=== PATIENT | female | born 1965 | race African-American/Black ===

== ENCOUNTER 2019-08-30 09:51 | Emergency (ER) | payer OTHER ==
[2019-08-30 10:02] VITALS: BP 131/73
--- NOTE | 2019-08-30 11:11 | Emergency Department Report ---
Minor Respiratory - HPI Chief Complaint: Upper Respiratory Infection Stated Complaint: FLU SYM Time Seen by Provider: 08/30/19 10:17 Pain Location: Facial, Nose, Chest Severity: mild Minor Respiratory: Yes Able to Tolerate Fluids, No Rhinorrhea, No Sore Throat, No Ear Pain, No Cough, No Sick Contacts, No Hemoptysis, No Chest Pain, No Shortness of Breath, No Fever Other History: Patient is a 53-year-old [place] female who comes to the ER. Complaining of fatigue, runny nose. She denied fever to me. She denied cough and shortness of breath to me. She denies having a temperature or night sweats. Family members present for interpretation. On assessment patient is afebrile, non-tachycardic, not hypotensive saturation on room air is 98%. She appears to be in no acute distress. She denies any medical problems or any daily medications. She states that last week she went to an urgent care and they did not care what happened to her they told her to come to the ER. She did not feel better today so her family brings her to the ER. She has had no travel, or high risk exposure for covid19. Patient is ambulatory, taking p.o., sitting in the chair with no difficulty in breathing, no increased work of breathing. No underlying comorbid conditions. My suspicion for covert 19 is low. However, chest x-ray has been ordered to rule out consolidation. ED Review of Systems ROS: Stated complaint: FLU SYM Other details as noted in HPI Comment: All other systems reviewed and negative ED Past Medical Hx - Past Medical History Previous Medical History?: No - Surgical History Past Surgical History?: No - Family History Family history: no significant - Social History Smoking Status: Never Smoker Substance Use Type: None - Medications Home Medications: Home Medications Medication Instructions Recorded Confirmed Last Taken Type Fluticasone [Flonase] 1 spray NS QDAY #1 bottle 08/30/19 Unknown Rx levoFLOXacin [Levaquin TAB] 500 mg PO QDAY #10 tablet 08/30/19 Unknown Rx predniSONE [Deltasone] 20 mg PO DAILY #5 tablet 08/30/19 Unknown Rx Minor Respiratory Exam - Exam General: Vital signs noted. No distress. Alert and acting appropriately. HEENT: Yes Moist Mucous Membranes, No Pharyngeal Erythema, No Pharyngeal Exudates, No Rhinorrhea, No Conjuctival Injection, No Frontal Tenderness, No Maxillary Tenderness Ear: Neither TM Bulge, Neither TM Erythema, Neither EAC Pain, Neither EAC Discharge Neck: Yes Supple, No Adenopathy Lungs: Yes Good Air Exchange, No Wheezes, No Ronchi, No Stridor, No Cough, No Labored Respirations, No Retractions, No Use of Accessory Muscles, No Other Abnormal Lung Sounds Heart: Yes Regular, No Murmur Abdomen: Yes Normal Bowel Sounds, No Tenderness, No Peritoneal Signs Skin: No Rash, No Edema Neurologic: Alert and oriented, no deficits. Musculoskeletal: Unremarkable. ED Course Vital Signs 08/30/19 09:57 Temperature 97.4 F L Pulse Rate 87 Respiratory 18 Rate Blood Pressure 131/73 O2 Sat by Pulse 98 Oximetry ED Medical Decision Making - Lab Data Result diagrams: 08/30/19 11:14 08/30/19 11:14 - Radiology Data Radiology results: report reviewed, image reviewed RLL conerns for pna - Medical Decision Making Labs 08/30/19 08/30/19 11:14 11:14 WBC 8.9 RBC 4.64 Hgb 13.7 Hct 41.1 MCV 89 MCH 29 MCHC 33 RDW 12.8 L Plt Count 402 Lymph % (Auto) 24.3 [place] % (Auto) 7.2 Eos % (Auto) 0.7 Baso % (Auto) 0.3 Lymph # 2.2 [place] # 0.6 Eos # 0.1 Baso # 0.0 Seg Neutrophils % 67.5 Seg Neutrophils # 6.0 Sodium 140 Potassium 4.3 Chloride 102.1 Carbon Dioxide 24 Anion Gap 18 BUN 9 Creatinine 0.5 L Estimated GFR > 60 BUN/Creatinine Ratio 18 Glucose 94 Calcium 9.3 Total Bilirubin 0.20 AST 36 ALT 42 Alkaline Phosphatase 90 Total Protein 7.9 Albumin 4.2 Albumin/Globulin Ratio 1.1 Vital Signs 08/30/19 09:57 Temperature 97.4 F L Pulse Rate 87 Respiratory 18 Rate Blood Pressure 131/73 O2 Sat by Pulse 98 Oximetry Labs were noted. WBC is normal. Differential normal. Chest x-ray noted. Levaquin PO started Low risk suspicion for Covid19 Patient taking p.o. and ambulatory in no acute distress. Vital signs are normal. Patient being discharged home with family and referral for follow-up. - Differential Diagnosis ro pna/ urti Critical care attestation.: If time is entered above; I have spent that time in minutes in the direct care of this critically ill patient, excluding procedure time. ED Disposition Clinical Impression: Upper respiratory infection, Pneumonia Disposition: DC- TO HOME OR SELFCARE Is pt being admited?: No Does the pt Need Aspirin: No Condition: Stable Instructions: Bacterial Pneumonia (ED) Additional Instructions: meds as ordered today SEE PCP IN 48 HOURS IF NOT FEELING BETTER REFERRAL BELOW motrin or tylenol for fever or pain rest hydrate well with water home isolation Prescriptions: predniSONE [Deltasone] 20 mg PO DAILY #5 tablet Fluticasone [Flonase] 1 spray NS QDAY #1 bottle levoFLOXacin [Levaquin TAB] 500 mg PO QDAY #10 tablet Referrals: PRIMARY CAREMD [Primary Care Provider] - 3-5 Days NANCY OCAMPO MD [Staff Physician] - 3-5 Days Time of Disposition: 12:02
[2019-08-30 11:52] LABS: Basophils % (Auto) 0.3 % (0.0-1.8); Eosinophils # (Auto) 0.1 K/mm3 (0.0-0.4); Eosinophils % (Auto) 0.7 % (0.0-4.3); Hematocrit 41.1 % (30.3-42.9); Hemoglobin 13.7 gm/dl (10.1-14.3); Lymphocytes # (Auto) 2.2 K/mm3 (1.2-5.4); Lymphocytes % (Auto) 24.3 % (13.4-35.0); Mean Corpuscular HGB Conc 33 % (30-34); Mean Corpuscular Volume 89 fl (79-97); Monocytes # (Auto) 0.6 K/mm3 (0.0-0.8); Monocytes % (Auto) 7.2 % (0.0-7.3); Platelet Count 402 K/mm3 (140-440); Red Blood Count 4.64 M/mm3 (3.65-5.03); Red Cell Distribution Width 12.8 % (13.2-15.2)
--- NOTE | 2019-08-30 11:53 | XRay Report ---
CHEST 2 VIEWS INDICATION / CLINICAL INFORMATION: Fatigue. Anosmia. COMPARISON: None available. FINDINGS: SUPPORT DEVICES: None. HEART / MEDIASTINUM: No significant abnormality. LUNGS / PLEURA: Vague opacities are seen along the right lower lobe. The lungs are otherwise clear. N o significant pleural effusion. No pneumothorax. ADDITIONAL FINDINGS: No significant additional findings. IMPRESSION: Vague right lower lobe opacities are nonspecific. Evolving pneumonia cannot be entirely excluded. Ple ase correlate with clinical findings. Follow-up PA and lateral chest radiographs in 2-3 weeks are rec ommended to document clearing. Signer Name: Roberto Oviedo MD Signed: 08/30/2019 11:49 AM Workstation Name: [id number]
[2019-08-30 11:56] LABS: Alanine Aminotransferase 42 units/L (7-56); Albumin 4.2 g/dL (3.9-5); BUN/Creatinine Ratio 18; Blood Urea Nitrogen 9 mg/dL (7-17); Calcium 9.3 mg/dL (8.4-10.2); Hemolysis Index 6
[2019-08-30] MEDS ORDERED: levoFLOXacin 500 MG TAB PO ONE (12:02)
== END 2019-08-30 12:23 | disposition home or self-care (01) ==
LOC: ED 09:51
DX: J06.9 Acute upper respiratory infection, unspecified (principal); J18.9 Pneumonia, unspecified organism; Z79.899 Other long term (current) drug therapy
CPT/HCPCS: 36415; 71046; 80053; 85025; 99283; 99284